=== PATIENT | male | born 1945 | race Caucasian/White ===

== ENCOUNTER → 2021-08-22 14:10 | Outpatient (BNVA) | payer OTHER, SELFPAY | PROVIDERS: PCP Physical Medicine & Rehabilitation; Visit Provider Specialist | DX: G10 Huntington's disease (principal); F43.10 Post-traumatic stress disorder, unspecified; Z87.891 Personal history of nicotine dependence | CPT/HCPCS: 99204; 99205 ==

== ENCOUNTER → 2022-02-20 13:06 | Outpatient (BNVA) | payer OTHER, SELFPAY | PROVIDERS: PCP Physical Medicine & Rehabilitation; Visit Provider Specialist | DX: G10 Huntington's disease (principal); F43.10 Post-traumatic stress disorder, unspecified; Z87.891 Personal history of nicotine dependence | CPT/HCPCS: 99213; 99214 ==

== ENCOUNTER → 2022-10-02 12:07 | Outpatient (BNVA) | payer OTHER, SELFPAY | PROVIDERS: PCP Physical Medicine & Rehabilitation; Visit Provider Specialist | DX: G10 Huntington's disease (principal); F41.9 Anxiety disorder, unspecified | CPT/HCPCS: 99214 ==

== ENCOUNTER → 2023-01-01 15:14 | Outpatient (BNVA) | payer OTHER, SELFPAY | PROVIDERS: PCP Physical Medicine & Rehabilitation; Visit Provider Specialist | DX: G10 Huntington's disease (principal) | CPT/HCPCS: 99213 ==

== ENCOUNTER → 2023-07-17 13:41 | Outpatient (BNVA) | payer OTHER, SELFPAY | PROVIDERS: PCP Physical Medicine & Rehabilitation; Visit Provider Specialist | DX: R29.90 Unspecified symptoms and signs involving the nervous system (principal); G10 Huntington's disease | CPT/HCPCS: 99213; 99214 ==

== ENCOUNTER → 2024-01-15 13:57 | Outpatient (BNVA) | payer OTHER, SELFPAY | PROVIDERS: PCP Physical Medicine & Rehabilitation; Visit Provider Specialist | DX: R29.90 Unspecified symptoms and signs involving the nervous system (principal); G10 Huntington's disease; M48.062 Spinal stenosis, lumbar region with neurogenic claudication; M79.89 Other specified soft tissue disorders | CPT/HCPCS: 99214 ==

== ENCOUNTER 2024-01-23 13:19 | Outpatient (CLI) | payer OTHER, SELFPAY ==
--- NOTE | 2024-01-23 14:15 | USCV_ITS ---
Thang Amador Age: 78 Gender: M : 1945 Exam Date: 01/23/2024 13:52 Ordering Phys: Calista James MD Technologist: CT Exam Location: [facility] [place] Indication: sob BP: 123 / 67 HR: 74 Rhythm: Sinus Technical Quality: Adequate MEASUREMENTS (Male / Female) Normal Values 2D ECHO LVOT Diameter 2.1 cm LV Ejection Fraction MOD 2C 68.3 % LV Ejection Fraction 2C AL 68.8 % LA Diameter 4.1 cm RA Systolic Volume 4C AL 32.6 ml RA Systolic Volume 4C MOD 29.8 ml Aorta at Sinotubular Diameter 2.3 cm IVC Diameter 1.7 cm M-MODE LA Ao Ratio MM 1.6 AV Cusp Separation MM 2.3 cm DOPPLER AV Peak Velocity 148.0 cm/s LVOT Peak Velocity 93.0 cm/s AV Area Cont Eq vti 2.1 cm squared AV Area Cont Eq pk 2.2 cm squared MV Peak Velocity 85.0 cm/s MV Area PHT 3.4 cm squared Mitral E to A Ratio 1.0 TV Peak Velocity 235.0 cm/s TR Peak Velocity 321.0 cm/s TR Peak Gradient 41.2 mmHg TV Peak E Velocity 72.0 cm/s Right Atrial Pressure 3.0 mmHg Pulmonary Artery Systolic Pressu 44.2 mmHg PV Peak Velocity 89.5 cm/s FINDINGS Left Ventricle Normal left ventricular size and systolic function, EF 68%. No regional wall motion abnormalities. Right Ventricle The right ventricle is normal in size and function. Right Atrium The right atrium is normal in size. Left Atrium The left atrium is normal in size. Mitral Valve Trace mitral valve regurgitation. Aortic Valve Thickened aortic valve. Tricuspid Valve Trace to mild tricuspid regurgitation. Estimated pulmonary artery peak systolic pressure 44 mmHg Pulmonic Valve No gross abnormalities noted Pericardium Normal pericardium without effusion. Aorta Normal ascending aorta dimension. IVC The inferior vena cava appears normal. CONCLUSIONS Normal left ventricular size and systolic function, EF 68%. No regional wall motion abnormalities. Trace mitral valve regurgitation. Trace to mild tricuspid regurgitation. Estimated pulmonary artery peak systolic pressure 44 mmHg. There is no pericardial effusion. There are no intracardiac masses. No similar previous studies are available for comparison Dr Louise Knapp MD [facility] (Electronically Signed) Final Date: 24 January 2024 11:26 S
== END 2024-01-23 13:20 | disposition home or self-care (01) ==
LOC: RAD 13:20
PROVIDERS: PCP Physical Medicine & Rehabilitation; Visit Provider Specialist
DX: M48.062 Spinal stenosis, lumbar region with neurogenic claudication (principal); G10 Huntington's disease; M79.89 Other specified soft tissue disorders
CPT/HCPCS: 93306

== ENCOUNTER 2024-02-07 10:36 | Outpatient (CLI) | payer OTHER, SELFPAY ==
--- NOTE | 2024-02-07 11:00 | MR_ITS ---
WS: [id number] MRI LUMBAR SPINE NONCONTRAST HISTORY: M48.062 - Spinal stenosis, lumbar region with neurogenic ... COMPARISON: None available. TECHNIQUE: Sagittal and axial multisequence imaging is submitted. Reversal of the normal cervical lordosis. Component of central cervical stenosis at C4-5, C5-6 and C6 -7 due to disc and osteophyte disease. There are additional smaller disc protrusions throughout the t horacic spine with no cord contact. LEFT scoliosis lumbar spine with asymmetric disc space narrowing. No fracture or marrow edema. Disc spaces are narrowed and desiccated. Conus terminates normally at L1-2 disc level. L1-L2: Mild annular disc bulging with ligamentum flavum and facet arthritis. Mild bilateral foraminal narrowing. L2-L3: Moderate annular disc bulging encroaching upon the ventral thecal sac. Mild central and bilate ral subarticular recess encroachment. Ligamentum flavum and facet arthritis. Mild bilateral foraminal stenosis. Disc does contact the traversing L3 nerve roots. L3-L4: Diffuse annular disc bulging with a moderate central disc protrusion and mild osteophytosis. M arked ligamentum flavum and facet arthritis. Disc protrusion extends into the subarticular recesses, greater on the RIGHT. Severe central with bilateral subarticular recess and RIGHT foraminal stenosis. Mild LEFT foraminal stenosis. L4-L5: Diffuse annular disc bulge with a broad-based central disc protrusion. Marked ligamentum flavu m and facet arthritis. Severe central, bilateral subarticular recess and moderate foraminal stenosis. There is significant contact on the traversing L5 nerve roots. L5-S1: Mild annular disc bulging and facet arthritis. Moderate bilateral foraminal stenosis. Bilateral renal cysts. Mild atherosclerosis aorta. Prostate gland is enlarged. IMPRESSION: 1. Degenerative levoscoliosis lumbar spine. 2. L3-4: Severe central with bilateral subarticular recess and RIGHT foraminal stenosis. Significant contact on the traversing L4 nerve roots. 3. L4-5: Severe central, bilateral subarticular recess and moderate foraminal stenosis. Broad-based central disc protrusion and marked facet joint arthritis. Significant contact on the traversing L5 ne rve roots. 4. L5-S1: Moderate foraminal stenosis. 5. L2-3: Mild central, bilateral subarticular recess and foraminal stenosis. There is very slight di sc contact on the traversing L3 nerve roots.
== END 2024-02-07 10:37 | disposition home or self-care (01) ==
LOC: RAD 10:36
PROVIDERS: PCP Physical Medicine & Rehabilitation; Visit Provider Specialist
DX: M48.062 Spinal stenosis, lumbar region with neurogenic claudication (principal); G10 Huntington's disease; M79.89 Other specified soft tissue disorders; M41.86 Other forms of scoliosis, lumbar region; M48.07 Spinal stenosis, lumbosacral region
CPT/HCPCS: 72148

== ENCOUNTER → 2024-07-16 14:08 | Outpatient (BNVA) | payer OTHER, SELFPAY | PROVIDERS: PCP Physical Medicine & Rehabilitation; Visit Provider Specialist | DX: R29.90 Unspecified symptoms and signs involving the nervous system (principal); G10 Huntington's disease; M48.062 Spinal stenosis, lumbar region with neurogenic claudication; M79.89 Other specified soft tissue disorders | CPT/HCPCS: 99213 ==

== ENCOUNTER → 2025-01-07 13:47 | Outpatient (BNVA) | payer OTHER, SELFPAY | PROVIDERS: PCP Physical Medicine & Rehabilitation; Visit Provider Specialist | DX: G10 Huntington's disease (principal); M48.062 Spinal stenosis, lumbar region with neurogenic claudication; M79.89 Other specified soft tissue disorders | CPT/HCPCS: 99213 ==